=== PATIENT | female | born 1945 | race Caucasian/White ===

== ENCOUNTER → 2016-09-03 | Outpatient (REF) | payer MEDICARE, OTHER | LOC: M LAB REF 13:28 | PROVIDERS: ATTEND Internal Medicine Medical Oncology | DX: C50.919 Malignant neoplasm of unspecified site of unspecified female breast (principal) ==

== ENCOUNTER → 2017-03-16 | Outpatient (CLI) | payer MEDICARE, OTHER ==
--- NOTE | 2017-03-16 10:02 | REPMRS ---
Patient History The patient states she had a clinical breast exam in August 2016.Patient is postmenopausal and has history of breast cancer at age 50. Family history of breast cancer in mother at age 60. Digital Mammo Screening Bilat: March 16, 2017 - Exam #: [id number] Bilateral CC and MLO view(s) were taken. Technologist: Tika Hernandez Technologist Prior study comparison: February 24, 2016, bilateral digital mammo screening bilat performed at [facility]. February 21, 2015, bilateral digital mammo screening bilat performed at [facility]. February 13, 2014, bilateral digital mammo screening bilat performed at [facility]. FINDINGS: There are scattered fibroglandular densities. There are stable post treatment changes in the right breast.There has been no change in the appearance of the mammogram from the prior studies. There is a mild amount of scattered fibroglandular density which is fairly symmetric. There is no interval development of dominant mass, architectural distortion, or clustered microcalcification suggestive of malignancy. ASSESSMENT: BI-RADS/ACR category 2 mammogram. Benign finding(s). Recommendation Routine screening mammogram in 1 year (for women over age 40). This mammogram was interpreted with the aid of an FDA-approved computer-aided dectection system. Electronically Signed By: Dylon Sarabia MD 03/16/17 [id number]
== END ==
LOC: M RAD 09:18
PROVIDERS: ATTEND Nurse Practitioner Family
DX: Z12.31 Encounter for screening mammogram for malignant neoplasm of breast (principal); Z78.0 Asymptomatic menopausal state; Z85.3 Personal history of malignant neoplasm of breast

== ENCOUNTER → 2018-07-05 | Outpatient (CLI) | payer MEDICARE, OTHER ==
[~2018-07-05] MED LIST: LASI20TA3 PO
--- NOTE | 2018-07-05 14:11 | REPMRS ---
Patient History The patient states she had a clinical breast exam in December 2017. Family history of breast cancer at age 60 in mother. Digital Mammo Screening Bilat: July 05, 2018 - Exam #: [id number] Bilateral CC and MLO view(s) were taken. Technologist: Shweta Monahan, Technologist Prior study comparison: March 16, 2017, bilateral digital mammo screening bilat performed at [facility]. February 24, 2016, bilateral digital mammo screening bilat performed at [facility]. February 21, 2015, bilateral digital mammo screening bilat performed at [facility]. FINDINGS: There are scattered fibroglandular densities. There are stable post treatment changes in the right breast. There has been no change in the appearance of the mammogram from the prior studies. There is a mild amount of scattered fibroglandular density which is fairly symmetric. There is no interval development of dominant mass, architectural distortion, or clustered microcalcification suggestive of malignancy. 3-D tomosynthesis shows no additional findings. Assessment: BI-RADS/ACR category 2 mammogram. Benign Findings. Recommendation Routine screening mammogram of both breasts in 1 year (for women over age 40). This mammogram was interpreted with the aid of an FDA-approved computer-aided dectection system. Electronically Signed By: Dylon Sarabia MD 07/05/18 [id number]
== END ==
LOC: M RAD 09:18
PROVIDERS: ATTEND Nurse Practitioner Family
DX: Z12.31 Encounter for screening mammogram for malignant neoplasm of breast (principal); Z80.3 Family history of malignant neoplasm of breast